=== PATIENT | male | born 1965 | race Hispanic/Latino ===

== ENCOUNTER → 2017-10-25 | Day surgery (SDC) | payer OTHER ==
[~2017-10-25] MED LIST: BELLADONNA/OPIUM 60 MG SUPP PR ONE; CEFTRIAXONE SOD 1 GM VIAL ONE; DEXAMETHASONE SOD PHOS INJ 4 MG/ML VIAL ONE; DITROPAN XL5 MG PO; FENTANYL CITRATE/PF 100MCG/2 ML INJ ONE; IOPAMIDOL 610MG/1ML 300 MG/ML VIAL IV ONE; LEVOFLOXACIN 500MG/D5W 100ML 100 ML IV ONE; LIDOCAINE HCL 2% LOCAL INJ 5 ML SDV VIAL INJ ONE; MIDAZOLAM HCL 2 MG/2 ML VIAL ONE; ONDANSETRON HCL INJ 2 MG/ML VIAL ONE; POTASSIUM CITRATE PO; PROPOFOL IV EMULSION 10 MG/ML 20 ML VIAL ONE; SEVOFLURANE INHAL SOLN 250 ML PEN BTL ONE; TYLENOL WITH C1 EACH PO; ZOFRAN ODT4 MG SL
--- NOTE | 2017-10-25 06:27 | Diagnostic Imaging Report ---
ABDOMEN-1VIEW (KUB) Clinical history: Preoperative kidney stone Technique: AP view abdomen Comparison: 08/11/2017 Findings: Abdomen: Nonobstructive bowel gas pattern. Kidneys/stones: Stable right renal stone burden with 2 mm calculus overlying the right lower pole, 3 mm calculus over the right interpolar region and 3 mm calculus over the right superior pole. Stable 3-4 mm calculi/calculus overlying the left lower pole. Pelvic phleboliths. Impression: Stable bilateral nephrolithiasis Signed by: Dr Camryn Noonan MD on 10/25/2017 6:23 AM
--- NOTE | 2017-11-30 04:49 | Operative Report ---
DATE OF PROCEDURE: October 25, 2017 PREOPERATIVE DIAGNOSES 1. Right nephrolithiasis. 2. Potential for renal colic. POSTOPERATIVE DIAGNOSES 1. Right nephrolithiasis. 2. Potential for renal colic. 3. Bulbar urethral stricture disease. OPERATIONS PERFORMED 1. Right-sided extracorporeal shockwave lithotripsy (separate staged procedure performed for the right nephrolithiasis). 2. Cystourethroscopy with calibration and dilation of bulbar urethral stricture (separate procedure performed for the diagnosis of stricture). 3. Cystourethroscopy with bilateral ureteral catheterization and retrograde ureteropyelography (separate procedure performed to evaluate to see whether the patient has renal colic as the etiology of the flank pains he has been describing). ANESTHESIA: General. COMPLICATIONS: None. CLINICAL SUMMARY: Carlos Alvarez is a 52-year-old man with recurrent urolithiasis. The patient had previous ESWL procedures, as well as previous ureteroscopies. He is brought to the operating room. He is aware of the risks of bleeding, infection, injury to adjacent structures, need for additional procedures, and elected to proceed. We plan to perform a contralateral ESWL in the near future. OPERATIVE PROCEDURE IN DETAIL: Informed consent was verified. Carlos Alvarez was properly identified and taken to the operating room, and placed on the lithotripsy table in the supine position. Anesthesia was uneventfully begun. The patient's right nephrolithiasis was localized with biplanar fluoroscopy. A total of 3000 shocks were delivered splitting them between the lower caliceal stone that was measuring 5 mm and the lower caliceal stone that was measuring 4 mm. Fragmentation was noted on fluoroscopy. The patient was then uneventfully and carefully repositioned in the dorsal lithotomy position with all pressure points well-padded. His genitalia were prepared and draped in the usual sterile fashion. A 22.5-Turkish cystoscope sheath with the visual obturator in place was atraumatically inserted into the patient's urethra. It was guided down the normal distal urethra to the bulbar region where there was a short, but fairly small caliber bulbar urethral stricture. We gently dilated across this stricture utilizing the visual obturator and entered the prostate bed. The prostate bed was significant for bilobar prostatic hypertrophy with an elevated median bar and visual obstruction of the bladder neck. Panendoscopy of the urinary bladder revealed no suspicious mucosal lesions. No tumors. No stones and no diverticula. Minimal trabeculations were noted. An 8-Turkish catheter was used to cannulate each ureter, and retrograde ureteropyelograms were performed. Interpretation of retrograde ureteropyelography. Contrast was instilled in a retrograde fashion bilaterally. There were filling defects of the right hand side, which corresponded to the area where we performed ESWL. The ureters were both free from obstruction and tumors. The right hand side did not exhibit any hydronephrosis or any reason for renal colic. The left side exhibited the stone as noted on preoperative radiographic studies. Unobstructed drainage was also noted on the left hand side. The patient's bladder was then drained. Cystoscope was withdrawn. A belladonna and opium suppository was placed revealing a 25 g prostate, but smooth, nonfluctuant without any nodules. Patient was uneventfully reversed from anesthesia, and taken to the recovery room in stable condition. There were no complications to the procedure. The patient tolerated the procedure well. Explicit postoperative instructions were given. Will return the patient to the operating room in several weeks to perform a left ESWL. Job#: [id number] MERRY
== END | disposition home or self-care (01) ==
LOC: OR 05:11
PROVIDERS: ATTEND Urology
DX: N20.0 Calculus of kidney (principal); N32.89 Other specified disorders of bladder; N40.1 Benign prostatic hyperplasia with lower urinary tract symptoms; N13.8 Other obstructive and reflux uropathy; N35.8 Other urethral stricture; I49.8 Other specified cardiac arrhythmias; G47.33 Obstructive sleep apnea (adult) (pediatric); Z01.810 Encounter for preprocedural cardiovascular examination; Z87.891 Personal history of nicotine dependence
CPT/HCPCS: 50590; 52281; 74000; 93005; C1758; J1100; J1956; J2001; J2250; J2405; Q9967; J0696

== ENCOUNTER → 2017-11-10 | Day surgery (SDC) | payer OTHER ==
[~2017-11-10] MED LIST changes: -BELLADONNA/OPIUM 60 MG SUPP PR ONE; -CEFTRIAXONE SOD 1 GM VIAL ONE; -IOPAMIDOL 610MG/1ML 300 MG/ML VIAL IV ONE; -MIDAZOLAM HCL 2 MG/2 ML VIAL ONE; +MIDAZOLAM HCL 5MG/ML 2ML VIAL ONE; +MORPHINE SULFATE 5 MG/ML VIAL ONE
--- NOTE | 2017-11-10 11:41 | Diagnostic Imaging Report ---
ABDOMEN-1VIEW (KUB) Clinical history: Preoperative ESWL Technique: AP view abdomen Comparison: 10/25/2017 Findings: Bowel gas gas and stool burden partially obscures the kidneys. There are two 2-3 mm stones projecting over the right upper pole. Other previously seen stones are not well visualized. Pelvic phleboliths again noted. Impression: Renal stones, as above. Signed by: Dr Camryn Noonan MD on 11/10/2017 6:57 AM
--- NOTE | 2018-01-09 05:43 | Operative Report ---
PREOPERATIVE DIAGNOSIS: Left nephrolithiasis. POSTOPERATIVE DIAGNOSIS: Left nephrolithiasis. OPERATIONS PERFORMED 1. Staged left-sided extracorporeal shock wave lithotripsy. 2. Supervision of fluoroscopy. No radiologist present. ANESTHESIA: General. COMPLICATIONS: None. CLINICAL SUMMARY: Carlos Alvarez is a 52-year-old man with recurrent bilateral urolithiasis who has undergone right ESWL and is brought for the left side. He is aware of the risks of bleeding, infection, injury to adjacent structures, need for additional procedures and elected to proceed. OPERATIVE PROCEDURE IN DETAIL: Informed consent was verified. Carlos Alvarez was properly identified, taken to the operating room, placed on the lithotripsy table in supine position. Anesthesia was uneventfully begun. The patient's left nephrolithiasis was localized with biplanar fluoroscopy. Total of 3000 shocks were delivered with visible fragmentation. The patient was then uneventfully reversed from anesthesia and taken to recovery room in stable condition. There were no complications to the procedure and he tolerated the procedure well. Explicit postoperative instructions were given. Will follow the patient up in the office. Job#: [id number] cc:RYANN MADRIGAL DO
== END | disposition home or self-care (01) ==
LOC: OR 05:45
PROVIDERS: ATTEND Urology
DX: N20.0 Calculus of kidney (principal); G47.33 Obstructive sleep apnea (adult) (pediatric)
CPT/HCPCS: 50590; 74000; J1100; J1956; J2001; J2250; J2270; J2405

== ENCOUNTER → 2018-07-27 | Outpatient (CLI) | payer BC ==
[~2018-07-27] MED LIST changes: -DEXAMETHASONE SOD PHOS INJ 4 MG/ML VIAL ONE; -FENTANYL CITRATE/PF 100MCG/2 ML INJ ONE; -LEVOFLOXACIN 500MG/D5W 100ML 100 ML IV ONE; -LIDOCAINE HCL 2% LOCAL INJ 5 ML SDV VIAL INJ ONE; -MIDAZOLAM HCL 5MG/ML 2ML VIAL ONE; -MORPHINE SULFATE 5 MG/ML VIAL ONE; -ONDANSETRON HCL INJ 2 MG/ML VIAL ONE; -PROPOFOL IV EMULSION 10 MG/ML 20 ML VIAL ONE; -SEVOFLURANE INHAL SOLN 250 ML PEN BTL ONE
--- NOTE | 2018-07-27 16:02 | Diagnostic Imaging Report ---
EXAM: Abdomen 2 Views INDICATION: \S\CALCULUS OF KIDNEY COMPARISON: KUB 11/10/2017 and 10/25/2017. CT abdomen and pelvis 10/20/2015 FINDINGS: Moderate amount of stool in the colon. No dilated loops of small bowel. 2 mm linear calcification overlying the upper pole of the right kidney is unchanged and consistent with nephrolithiasis. Faint 3 mm calcification overlying the inferior left kidney may represent a renal stone. No abnormal soft tissue masses. No degenerative changes in the lumbar spine and pelvis. IMPRESSION: 1. Unchanged right nephrolithiasis. 2. Possible left nephrolithiasis. Signed by: Dr. Britney Tiwari M.D. on 07/27/2018 3:58 PM
== END ==
LOC: RAD 14:37
PROVIDERS: ATTEND Urology
DX: N20.0 Calculus of kidney (principal)
CPT/HCPCS: 74018

== ENCOUNTER → 2019-01-22 | Outpatient (CLI) | payer BC ==
--- NOTE | 2019-01-22 13:11 | Diagnostic Imaging Report ---
EXAM: Abdomen 3 Views INDICATION: Renal calculus. COMPARISON: KUB 07/27/18. CT abdomen and pelvis 10/20/2015 FINDINGS: Unchanged 2 mm right upper pole renal calcification and 3 mm left lower pole renal calcification. Nonobstructive bowel gas pattern. No acute osseous abnormality. IMPRESSION: Unchanged appearance of bilateral renal stones. Signed by: Dr. Magdalena Rock MD on 01/22/2019 1:07 PM
== END ==
LOC: RAD 12:02
PROVIDERS: ATTEND Urology
DX: N20.0 Calculus of kidney (principal)
CPT/HCPCS: 74018

== ENCOUNTER → 2019-12-25 | Outpatient (CLI) | payer BC ==
[~2019-12-25] MED LIST changes: +IOPAMIDOL 370 MG/ML 200 ML INFUS..BTL INJ ONE; +SODIUM CHLORIDE 0.9% 50ML 50 ML ONE
--- NOTE | 2019-12-25 15:42 | Diagnostic Imaging Report ---
Exam: CT abdomen and pelvis Clinical history: Abdominal pain, hernia Technique: Helical images of the abdomen and pelvis were obtained after IV contrast demonstration DOSE REDUCTION: The exams was performed according to the departmental dose-optimization program which includes automated exposure control, adjustment of the mA and/or kV according to patient size and/or use of iterative reconstruction technique. Findings: The lung bases are clear. There is no evidence of pleural effusion. The cardiac size is within normal limits. Next The liver, spleen, pancreas, gallbladder, adrenal glands, and kidneys are unremarkable. The small and large bowels are normal in caliber without evidence of obstruction. Appendix is visualized and within normal limits. The bladder, prostate, and seminal vesicles are unremarkable. There is no evidence of lymphadenopathy or free fluid. The aorta and IVC are normal in caliber. A 3.2 cm fat-containing umbilical hernia is noted without evidence of angulation or incarceration. Impression: 1. Fat-containing umbilical hernia as described. Otherwise, unremarkable CT of abdomen and pelvis. Vanita at Dr. Patel's office was notified of findings on December 25, 2019 at 1530 hours. Signed by: Dr. Dewayne Gill MD on 12/25/2019 3:39 PM
== END ==
LOC: CT 14:30
PROVIDERS: ATTEND Family Medicine
DX: R10.9 Unspecified abdominal pain (principal); K42.9 Umbilical hernia without obstruction or gangrene; R11.0 Nausea
CPT/HCPCS: 74177; Q9967

== ENCOUNTER → 2020-01-10 | Day surgery (SDC) | payer BC ==
[2020-01-09 13:19] LABS: BASOPHILS # (AUTO) 0.1 (0.0-0.1); BASOPHILS % 1.1 % (0.0-1.0); EOSINOPHILS # (AUTO) 0.5 (0.0-0.4); EOSINOPHILS % 6.6 % (0.0-6.0); HEMATOCRIT 44.7 % (38.2-49.6); HEMOGLOBIN 14.5 g/dL (14.0-18.0); LYMPHOCYTES # (AUTO) 2.6 (1.0-3.2); LYMPHOCYTES % 32.7 % (18.0-39.1); MEAN CORPUSCULAR HEMOGLOBIN 29.8 pg (28-32); MEAN CORPUSCULAR HGB CONC 32.4 g/dL (31-35); MONOCYTES # (AUTO) 0.8 (0.2-0.8); MONOCYTES % 9.8 % (4.4-11.3); NEUTROPHILS % 49.4 % (38.7-80.0); PLATELET COUNT 257 x10e3/uL (140-360); RED BLOOD COUNT 4.86 x10e6/uL (4.3-5.7); RED CELL DISTRIBUTION WIDTH 13.3 % (11.7-14.4)
[2020-01-09 13:35] LABS: ANION GAP 10.1 mmol/L (8-16); CALCIUM 9.1 mg/dL (8.4-10.2); CREATININE, SERUM 1.31 mg/dL (0.72-1.25); POTASSIUM 4.1 mmol/L (3.5-5.1)
[~2020-01-10] MED LIST changes: +ACETAMINOPHEN 1000 MG/100 ML IV ONE; +BUPIVACAINE 0.25% 30ML SDV INJ ONE; +DEXAMETHASONE SOD PHOS INJ 4 MG/ML VIAL ONE; +FENTANYL CITRATE/PF 100MCG/2 ML INJ ONE; +GLYCOPYRROLATE INJ 0.2 MG/ML VIAL ONE; +HYDROCODONE/APAP 7.5MG-325MG 1 EA TAB ONE; +HYDROMORPHONE 1MG/1ML INJ ONE; -IOPAMIDOL 370 MG/ML 200 ML INFUS..BTL INJ ONE; +LIDOCAINE 1% W/EPINEPHRINE 20 ML VIAL ONE; +LIDOCAINE HCL 2% LOCAL INJ 5 ML SDV VIAL INJ ONE; +MIDAZOLAM HCL 2 MG/2 ML VIAL ONE; +NEOSTIGMINE 1 MG/ML 10ML VIAL ONE; +ONDANSETRON HCL INJ 2MG/ML 2ML 2 MG/ML VIAL ONE; +PROPOFOL IV EMULSION 10 MG/ML 20 ML VIAL ONE; +ROCURONIUM BROMIDE 10 MG/ML 5ML VIAL ONE; +SEVOFLURANE INHAL SOLN 250 ML PEN BTL ONE; -SODIUM CHLORIDE 0.9% 50ML 50 ML ONE
--- OUTSIDE RECORDS SUMMARY | 2020-01-10 07:32 | XMS REPORT ---
Author Author [facility] Address Unknown Phone Unavailable Care Team Providers Care Dehydrating Press Operator Name Role Phone RYANN PATEL Unavailable Unavailable HAMPEL, PARMINDER Unavailable Unavailable Problems This patient has no known problems. Allergies, Adverse Reactions, Alerts This patient has no known allergies or adverse reactions. Medications This patient has no known medications. Results Test Description Test Time Test Comments Text Results Atomic Results Result Comments CT ABDOMEN/PELVIS W 2019-12-25 15:35:00 [facility] [address] [address] Patient Name: NAILA SCHUSTER MR #: [id number] : 1965 Age/Sex: 54/M Req #: [id number] Adm Physician: Ordered by: RYANN PATEL DO Report #: [id number] Location: CT Room/Bed: Procedure: [id number] CT/CT ABDOMEN/PELVIS W Exam Date: 12/25/19 Exam Time: 1510 REPORT STATUS: Signed Exam: CT abdomen and pelvis Clinical history: Abdominal pain, hernia Technique: Helical images of the abdomen and pelvis were obtained after IV contrast demonstration DOSE REDUCTION: The exams was performed according to the departmental dose-optimization program which includes automated exposure control, adjustment of the mA and/or kV according to patient size and/or use of iterative reconstruction technique. Findings: The lung bases are clear. There is no evidence of pleural effusion. The cardiac size is within normal limits. Next The liver, spleen, pancreas, gallbladder, adrenal glands, and kidneys are unremarkable. The small and large bowels are normal in caliber without evidence of obstruction. Appendix is visualized and within normal limits. The bladder, prostate, and seminal vesicles are unremarkable. There is no evidence of lymphadenopathy or free fluid. The aorta and IVC are normal in caliber. A 3.2 cm fat-containing umbilical hernia is noted without evidence of angulation or incarceration. Impression: 1. Fat-containing umbilical hernia as described. Otherwise, unremarkable CT of abdomen and pelvis. Vanita at Dr. Patel's office was notified of findings on December 25, 2019 at 1530 hours. Signed by: Dr. Dewayne Gill MD on 12/25/2019 3:39 PM Dictated By: JACKSON GILL MD 38 Transcribed By: JAYMIE on 12/25/191538 COPY TO: RYANN PATEL DO ABDOMEN-1VIEW (KUB) 2019-08-30 10:28:00 [place] [address] Patient Name: NAILA SCHUSTER MR #: [id number] : 1965 Age/Sex: 54/M Req #: [id number] Adm Physician: Ordered by: PARMINDER LORENZO MD Report #: [id number] Location: Room/Bed: Procedure: [id number] DX/ABDOMEN-1VIEW (KUB) Exam Date: 08/30/19 Exam Time: 0940 REPORT STATUS: Signed Exam: KUB - 2 views Indication: Renal calculi Comparison: Multiple prior KUBs, most recently 01/22/2019, renal ultrasound of the same day. Findings: 4 mm right upper pole renal calculus and 4 mm left lower pole renal calculus. These were not well seen on the renal ultrasound of the same day but were present on prior KUB. No additional radiographically apparent renal calculi. Nonobstructive bowel gas pattern. No free air. The osseous structures appear unremarkable. Impression: 4 mm right upper pole and 4 mm left lower pole renal calculi. Signed by: Phan Ernst MD on 08/30/2019 10:31 AM Dictated By: PHAN ERNST MD 1031 Transcribed By: JAYMIE on 08/30/19 1031 COPY TO: PARMINDER LORENZO MD RENAL RETROPERITONEAL COMP 2019-08-30 10:16:00 [place] [address] Patient Name: NAILA SCHUSTER MR #: [id number] : 1965 Age/Sex: 54/M Req #: [id number] Adm Physician: Ordered by: PARMINDER LORENZO MD Report #: [id number] Location: Room/Bed: Procedure: [id number] US/US RENAL RETROPERITONEAL COMP Exam Date: 08/30/19 Exam Time: 930 REPORT STATUS: Signed EXAM: Renal Ultrasound INDICATION: 201 18024 0931 CALCULUS OF KIDNEY COMPARISON: None TECHNIQUE: Transverse and longitudinal images of the kidneys and bladder were obtained. FINDINGS: Right Kidney: Length: 12.9 cm Appearance: Normal echogenicity. Collecting system: No hydronephrosis Stones: None Cyst/Mass: None Left Kidney: Length: 12.4 cm Appearance: Normal echogenicity. Collecting system: No hydronephrosis Stones: None Cyst/Mass: None Bladder: No mass or calculi. Bilateral ureteral jets seen. Prevoid volume estimate of 135cc. IMPRESSION: No renal calculi or hydronephrosis. Signed by: Phan Ernst MD on 08/30/2019 10:18 AM Dictated By: PHAN ERNST MD 1018 Transcribed By: JAYMIE on 08/30/19 1018 COPY TO: PARMINDER LORENZO MD ABDOMEN-1VIEW (KUB) 2019-01-22 12:59:00 [place] [address] Patient Name: NAILA SCHUSTER MR #: [id number] : 1965 Age/Sex: 53/M Req #: [id number] Adm Physician: Ordered by: PARMINDER LORENZO MD Report #: [id number] Location: [facility] Room/Bed: Procedure: [id number] DX/ABDOMEN-1VIEW (KUB) Exam Date: 01/22/19 Exam Time: 1220 REPORT STATUS: Signed EXAM: Abdomen 3 Views INDICATION: Renal calculus. COMPARISON: KUB 07/27/18. CT abdomen and pelvis 10/20/2015 FINDINGS: Unchanged 2 mm right upper pole renal calcification and 3 mm left lower pole renal calcification. Nonobstructive bowel gas pattern. No acute osseous abnormality. IMPRESSION: Unchanged appearance of bilateral renal stones. Signed by: Dr. Judy Pelayo MD on 01/22/2019 1:07 PM Dictated By: JUDY PELAYO MD 1307 Transcribed By: JAYMIE on 01/22/19 1307 COPY TO: PARMINDER LORENZO MD ABDOMEN-1VIEW (KUB) 2018-07-27 15:56:00 [place] [address] Patient Name: NAILA SCHUSTER MR #: [id number] : 1965 Age/Sex: 52/M Req #: [id number] Adm Physician: Ordered by: PARMINDER LORENZO MD Report #: [id number] Location: [facility] Room/Bed: Procedure: [id number] DX/ABDOMEN-1VIEW (KUB) Exam Date: Exam Time: REPORT STATUS: Signed EXAM: Abdomen 2 Views INDICATION: COMPARISON: KUB 11/10/2017 and 10/25/2017. CT abdomen and pelvis 10/20/2015 FINDINGS: Moderate amount of stool in the colon. No dilated loops of small bowel. 2 mm linear calcification overlying the upper pole of the right kidney is unchanged and consistent with nephrolithiasis. Faint 3 mm calcification overlying the inferior left kidney may represent a renal stone. No abnormal soft tissue masses. No degenerative changes in the lumbar spine and pelvis. IMPRESSION: 1. Unchanged right nephrolithiasis. 2. Possible left nephrolithiasis. Signed by: Dr. Bean Berry M.D. on 07/27/2018 3:58 PM Dictated By: BEAN BERRY MD 3001 Transcribed By: JAYMIE on 07/27/18 6702 COPY TO: PARMINDER LORENZO MD ABDOMEN-1VIEW ([facility]) [place] [address] Patient Name: NAILA SCHUSTER MR #: [id number] : 1965 Age/Sex: 52/M Req #: [id number] Adm Physician: Ordered by: PARMINDER LORENZO MD Report #: [id number] Location: OR Room/Bed: Procedure: [id number] DX/ABDOMEN-1VIEW (KUB) Exam Date: 11/10/17 Exam Time: 609 REPORT STATUS: Signed ABDOMEN-1VIEW (KUB) Clinical history: Preoperative ESWL Technique: AP view abdomen Comparison: 10/25/2017 Findings: Bowel gas gas and stool burden partially obscures the kidneys. There are two 2-3 mm stones projecting over the right upper pole. Other previously seen stones are not well visualized. Pelvic phleboliths again noted. Impression: Renal stones, as above. Signed by: Dr Joey Noonan MD on 11/10/2017 6:57 AM Dictated By: JOEY NOONAN MD 6 Transcribed By: JAYMIE on 11/10/17656 COPY TO: PARMINDER LORENZO MD ABDOMEN-1VIEW (KUB) [place] [address] Patient Name: NAILA SCHUSTER MR #: [id number] : 1965 Age/Sex: 52/M Req #: [id number] Adm Physician: Ordered by: PARMINDER LORENZO MD Report #: [id number] Location: OR Room/Bed: Procedure: [id number] DX/ABDOMEN-1VIEW (KUB) Exam Date: 10/25/17 Exam Time: 0546 REPORT STATUS: Signed ABDOMEN-1VIEW (KUB) Clinical history: Preoperative kidney stone Technique: AP view abdomen Comparison: 08/11/2017 Findings: Abdomen: Nonobstructive bowel gas pattern. Kidneys/stones: Stable right renal stone burden with 2 mm calculus overlying the right lower pole, 3 mm calculus over the right interpolar region and 3 mm calculus over the right superior pole. Stable 3-4 mm calculi/calculus overlying the left lower pole. Pelvic phleboliths. Impression: Stable bilateral nephrolithiasis Signed by: Dr Joey Noonan MD on 10/25/2017 6:23 AM Dictated By: JOEY NOONAN MD 2 Transcribed By: JAYMIE on 10/25/17622 COPY TO: PARMINDER LORENZO MD ABDOMEN-1VIEW (KUB) [place] [address] Patient Name: NAILA SCHUSTER MR #: [id number] : 1965 Age/Sex: 52/M Req #: [id number] Adm Physician: Ordered by: PARMINDER LORENZO MD Report #: [id number] Location: [facility] Room/Bed: Procedure: [id number] DX/ABDOMEN-1VIEW (KUB) Exam Date: 08/11/17 Exam Time: 1650 REPORT STATUS: Signed PROCEDURE: X-RAY ABDOMEN - KUB COMPARISON: None. INDICATIONS: CALCULUS OF KIDNEY FINDINGS: There are no dilated loops of bowel to suggest obstruction. There are no masses. There is no evidence of free air. No acute osseous abnormalities are present. 0.2 cm and 0.2 cm stones in the lower pole of the right kidney. 0.3 cm stone in the lower pole of the left kidney. CONCLUSION: Stable stones in bilateral kidneys. Dictated by: Rere Choudhary M.D. on 08/11/2017 at 17:19 Electronically approved by: Rere Choudhary M.D. on 08/11/2017 at 17:19 Dictated By: RERE CHOUDHARY MD 18 Transcribed By: AUBREE on 08/11/171718 COPY TO: PARMINDER LORENZO MD
[2020-01-10 13:20] VITALS: BP 115/81
--- NOTE | 2020-01-10 13:49 | Operative Report ---
DATE OF PROCEDURE: 01/10/2020 SURGEON: Richard De La Cruz MD PREOPERATIVE DIAGNOSIS: Umbilical hernia. POSTOPERATIVE DIAGNOSIS: Umbilical hernia. OPERATION PERFORMED: Repair of umbilical hernia with Ventralex patch. MULTI CRAFT MAINTENANCE TECHNICIAN: JAZLYN Gibbs. ANESTHESIA: General. COMPLICATIONS: None. ESTIMATED BLOOD LOSS: Minimal. DESCRIPTION OF PROCEDURE: With the patient lying in bed in the supine position under good general anesthesia, the abdomen was prepped with Betadine solution and draped in the usual manner. A semilunar subumbilical incision was made and carried down to the fascia. The hernia sac was then encircled with normal fascia all the way around. The umbilicus was then detached from the hernia sac. The contents were then reduced back to the intra-abdominal cavity and the excess of the hernia sac was resected. There was good fascia all the way around. A medium-sized Ventralex patch was then placed intra-abdominally and deployed without any difficulty. After this was done, the defect was then closed transversely using interrupted sutures of 0 Ethibond anchoring the mesh with the closure. This gave us a satisfactory repair without any tension. The whole area was then thoroughly irrigated. Perfect hemostasis was ascertained. All layers were infiltrated on the way out with solution of 0.25% Marcaine. The umbilicus was then tacked back down to the midline fascia with 3-0 Vicryl. The subcutaneous tissue was approximated with 3-0 Vicryl and the skin was closed with interrupted vertical mattress sutures of 3-0 silk. A dressing was applied. The sponge, lap, and needle count was correct. The patient tolerated the procedure well and returned to the recovery room in stable condition. MD CATHY Corral/MODL /[id number]
== END | disposition home or self-care (01) ==
LOC: OR 07:30
PROVIDERS: ATTEND Surgery
DX: K42.9 Umbilical hernia without obstruction or gangrene (principal); G47.33 Obstructive sleep apnea (adult) (pediatric); Z88.0 Allergy status to penicillin; Z01.810 Encounter for preprocedural cardiovascular examination; Z01.812 Encounter for preprocedural laboratory examination
CPT/HCPCS: 36415; 49585; 80048; 85025; 93005; C1781; J0131; J1100; J1170; J2001; J2250; J2405; J2704; J2710; J3010

== ENCOUNTER → 2020-09-22 | Day surgery (SDC) | payer BC ==
[~2020-09-22] MED LIST changes: -ACETAMINOPHEN 1000 MG/100 ML IV ONE; +ACETAMINOPHEN 325 MG/10 ML UDC ONE; -BUPIVACAINE 0.25% 30ML SDV INJ ONE; -DEXAMETHASONE SOD PHOS INJ 4 MG/ML VIAL ONE; -GLYCOPYRROLATE INJ 0.2 MG/ML VIAL ONE; -HYDROCODONE/APAP 7.5MG-325MG 1 EA TAB ONE; -HYDROMORPHONE 1MG/1ML INJ ONE; +HYOSCYAMINE 0.125 MG TAB ONE; -LIDOCAINE 1% W/EPINEPHRINE 20 ML VIAL ONE; +MAGNESIUM OXID400 MG PO; +MULTI-VITAMIN1 EACH PO; -NEOSTIGMINE 1 MG/ML 10ML VIAL ONE; -ONDANSETRON HCL INJ 2MG/ML 2ML 2 MG/ML VIAL ONE; -ROCURONIUM BROMIDE 10 MG/ML 5ML VIAL ONE; -SEVOFLURANE INHAL SOLN 250 ML PEN BTL ONE; +VIT C PO; +ZINC50 MG PO
[2020-09-22 13:35] VITALS: BP 114/65
== END | disposition home or self-care (01) ==
LOC: OR 08:57
PROVIDERS: ATTEND Internal Medicine Gastroenterology
DX: Z12.11 Encounter for screening for malignant neoplasm of colon (principal); D12.2 Benign neoplasm of ascending colon; K62.1 Rectal polyp; K64.8 Other hemorrhoids; Z88.0 Allergy status to penicillin; Z01.810 Encounter for preprocedural cardiovascular examination; Z01.812 Encounter for preprocedural laboratory examination; Z20.828 Contact with and (suspected) exposure to other viral communicable diseases
CPT/HCPCS: 45380; 93005; J2001; J2250; J2704; J3010; U0002; 45378

== ENCOUNTER → 2021-03-15 | Outpatient (CLI) | payer BC ==
[~2021-03-15] MED LIST changes: -ACETAMINOPHEN 325 MG/10 ML UDC ONE; -FENTANYL CITRATE/PF 100MCG/2 ML INJ ONE; -HYOSCYAMINE 0.125 MG TAB ONE; -LIDOCAINE HCL 2% LOCAL INJ 5 ML SDV VIAL INJ ONE; -MIDAZOLAM HCL 2 MG/2 ML VIAL ONE; -PROPOFOL IV EMULSION 10 MG/ML 20 ML VIAL ONE
== END ==
LOC: RAD 16:31
PROVIDERS: ATTEND Urology
DX: N20.0 Calculus of kidney (principal)
CPT/HCPCS: 74018

== ENCOUNTER 2021-04-15 09:26 | Observation (INO) | payer BC ==
[2021-04-13 09:01] LABS: BASOPHILS # (AUTO) 0.1 (0.0-0.1); BASOPHILS % 1.3 % (0.0-1.0); EOSINOPHILS # (AUTO) 0.7 (0.0-0.4); EOSINOPHILS % 8.8 % (0.0-6.0); HEMATOCRIT 46.7 % (38.2-49.6); HEMOGLOBIN 15.3 g/dL (14.0-18.0); LYMPHOCYTES % 24.8 % (18.0-39.1); MEAN CORPUSCULAR HEMOGLOBIN 29.7 pg (28-32); MEAN CORPUSCULAR HGB CONC 32.8 g/dL (31-35); MEAN CORPUSCULAR VOLUME 90.5 fL (81-99); MONOCYTES # (AUTO) 0.8 (0.2-0.8); MONOCYTES % 9.2 % (4.4-11.3); NEUTROPHILS # (AUTO) 4.5 (2.1-6.9); NEUTROPHILS % 55.5 % (38.7-80.0); PLATELET COUNT 238 x10e3/uL (140-360); RED BLOOD COUNT 5.16 x10e6/uL (4.3-5.7); RED CELL DISTRIBUTION WIDTH 13.6 % (11.7-14.4)
[2021-04-13 09:23] LABS: ANION GAP 13.2 mmol/L (8-16); CALCIUM 8.7 mg/dL (8.4-10.2); CREATININE, SERUM 1.41 mg/dL (0.72-1.25); POTASSIUM 4.2 mmol/L (3.5-5.1)
[~2021-04-15] VITALS: Ht 180.3 cm; Wt 92.3 kg
[2021-04-15] MEDS ORDERED: BUPIVACAINE 0.5%/EPI 30 ML SDV INJ ONE (10:35)
[2021-04-15] MEDS ORDERED: LIDOCAINE HCL 1% LOCAL INJ 20 ML VIAL ONE (10:35)
[2021-04-15] MEDS ORDERED: LIDOCAINE HCL 2% 30 ML TUBE ONE (10:35)
[2021-04-15] MEDS ORDERED: BUPIVACAINE LIPOSOME/PF 266 MG/20 ML IJ ONE (10:35)
[2021-04-15] MEDS ORDERED: ACETAMINOPHEN 1000 MG/100 ML 100 ML IV ONE (11:17)
[2021-04-15] MEDS ORDERED: ACETAMINOPHEN 1000 MG/100 ML IV PRN (12:30)
[2021-04-15] MEDS ORDERED: ONDANSETRON HCL INJ 2MG/ML 2ML 2 MG/ML VIAL IV PRN (12:30)
[2021-04-15] MEDS ORDERED: FENTANYL CITRATE/PF 100MCG/2 ML INJ ONE (12:53)
[2021-04-15 14:00] VITALS: BP 112/66
[2021-04-15 14:05] VITALS: BP 120/74
[2021-04-15] MEDS: HYDROCODONE/APAP 7.5MG-325MG 1 EA TAB PO PRN ×2 (14:38→19:32)
[2021-04-15] MEDS: SODIUM CHLORIDE 0.9% 1000ML 1,000 ML IV SCH ×2 (14:38→23:55)
[2021-04-15] MEDS: LEVOFLOXACIN 500 MG TAB PO SCH (14:38)
[2021-04-15] MEDS: HYDROMORPHONE 1MG/1ML INJ IV PRN ×2 (17:04→21:39)
[2021-04-15] MEDS ORDERED: LIDOCAINE HCL 2% JELLY 5 ML TUBE ONE (17:24)
[2021-04-15] MEDS ORDERED: DEXAMETHASONE SOD PHOS INJ 4 MG/ML VIAL ONE (17:24)
[2021-04-15] MEDS ORDERED: LIDOCAINE HCL 2% LOCAL INJ 5 ML SDV VIAL INJ ONE (17:24)
[2021-04-15] MEDS ORDERED: SEVOFLURANE INHAL SOLN 250 ML PEN BTL ONE (17:24)
[2021-04-15] MEDS ORDERED: EPHEDRINE SULFATE INJ 50 MG/ML VIAL ONE (17:24)
[2021-04-15] MEDS ORDERED: ONDANSETRON HCL INJ 2MG/ML 2ML 2 MG/ML VIAL ONE (17:24)
[2021-04-15] MEDS ORDERED: POVIDONE IODINE 0.05% 0.05 % ML PO ONE (17:24)
[2021-04-15] MEDS ORDERED: PROPOFOL IV EMULSION 10 MG/ML 20 ML VIAL ONE (17:24)
[2021-04-15 18:39] LABS: BASOPHILS # (AUTO) 0.1 (0.0-0.1); BASOPHILS % 0.4 % (0.0-1.0); EOSINOPHILS % 0.1 % (0.0-6.0); HEMATOCRIT 46.3 % (38.2-49.6); HEMOGLOBIN 15.2 g/dL (14.0-18.0); LYMPHOCYTES # (AUTO) 0.9 (1.0-3.2); LYMPHOCYTES % 7.2 % (18.0-39.1); MEAN CORPUSCULAR HEMOGLOBIN 29.9 pg (28-32); MEAN CORPUSCULAR HGB CONC 32.8 g/dL (31-35); MEAN CORPUSCULAR VOLUME 91.1 fL (81-99); MONOCYTES # (AUTO) 0.3 (0.2-0.8); MONOCYTES % 2.5 % (4.4-11.3); NEUTROPHILS # (AUTO) 11.1 (2.1-6.9); NEUTROPHILS % 89.4 % (38.7-80.0); PLATELET COUNT 244 x10e3/uL (140-360); RED BLOOD COUNT 5.08 x10e6/uL (4.3-5.7); RED CELL DISTRIBUTION WIDTH 13.5 % (11.7-14.4)
[2021-04-15 19:11] LABS: ANION GAP 12.7 mmol/L (8-16); CALCIUM 8.2 mg/dL (8.4-10.2); CREATININE, SERUM 1.44 mg/dL (0.72-1.25); POTASSIUM 4.7 mmol/L (3.5-5.1)
[2021-04-15 20:00] VITALS: BP 119/65
[2021-04-15 21:25] VITALS: BP 119/65
[2021-04-16] MEDS: HYDROCODONE/APAP 7.5MG-325MG 1 EA TAB PO PRN ×3 (00:05→13:27)
[2021-04-16] MEDS: SODIUM CHLORIDE 0.9% 1000ML 1,000 ML IV SCH ×2 (00:30→09:26)
[2021-04-16 00:38] VITALS: BP 99/51
[2021-04-16] MEDS: HYDROMORPHONE 1MG/1ML INJ IV PRN ×2 (02:30→05:28)
[2021-04-16 04:00] VITALS: BP 114/49
[2021-04-16 05:04] LABS: BASOPHILS # (AUTO) 0.1 (0.0-0.1); BASOPHILS % 0.4 % (0.0-1.0); EOSINOPHILS % 0.1 % (0.0-6.0); LYMPHOCYTES # (AUTO) 2.3 (1.0-3.2); LYMPHOCYTES % 12.4 % (18.0-39.1); MEAN CORPUSCULAR HEMOGLOBIN 29.7 pg (28-32); MEAN CORPUSCULAR HGB CONC 32.6 g/dL (31-35); MEAN CORPUSCULAR VOLUME 91.3 fL (81-99); MONOCYTES # (AUTO) 1.4 (0.2-0.8); MONOCYTES % 7.2 % (4.4-11.3); NEUTROPHILS # (AUTO) 14.8 (2.1-6.9); NEUTROPHILS % 79.1 % (38.7-80.0); PLATELET COUNT 240 x10e3/uL (140-360); RED BLOOD COUNT 4.71 x10e6/uL (4.3-5.7); RED CELL DISTRIBUTION WIDTH 13.7 % (11.7-14.4)
[2021-04-16 05:28] LABS: ANION GAP 13.2 mmol/L (8-16); CALCIUM 7.8 mg/dL (8.4-10.2); CREATININE, SERUM 1.47 mg/dL (0.72-1.25); POTASSIUM 4.2 mmol/L (3.5-5.1)
[2021-04-16 08:20] VITALS: BP 105/51
[2021-04-16] MEDS: KETOROLAC TROMETHAMINE 30 MG/ML VIAL IV PRN ×2 (08:33→16:00)
[2021-04-16 08:48] VITALS: BP 105/57
[2021-04-16 13:51] VITALS: BP 102/52
[2021-04-16] MEDS: LEVOFLOXACIN 500 MG TAB PO SCH (15:30)
[2021-04-16 16:54] VITALS: BP 105/51
== END 2021-04-16 18:26 | disposition home or self-care (01) ==
LOC: OR 09:26 → PACU V 12:22 → IMCU 14:00 → MED/SURG 18:15
PROVIDERS: ADMIT Surgery; ATTEND Surgery
DX: K64.8 Other hemorrhoids (principal); G47.33 Obstructive sleep apnea (adult) (pediatric); Z88.0 Allergy status to penicillin; Z01.810 Encounter for preprocedural cardiovascular examination; Z01.812 Encounter for preprocedural laboratory examination; Z20.822 Contact with and (suspected) exposure to COVID-19; Z87.442 Personal history of urinary calculi
CPT/HCPCS: 36415 ×3; 46260; 80048 ×3; 85025 ×3; 88304; 93005; 96360; 96361; G0378 ×2; J0131; J1100; J1170 ×2; J1885; J2001 ×3; J2405; J2704; J3010; J7030 ×2; U0002

== ENCOUNTER → 2021-07-23 | Outpatient (CLI) | payer BC | LOC: US 08:44 | PROVIDERS: ATTEND Family Medicine | DX: S39.013A Strain of muscle, fascia and tendon of pelvis, initial encounter (principal) | CPT/HCPCS: 76856 ==

== ENCOUNTER → 2021-10-11 | Day surgery (SDC) | payer BC ==
[2021-10-06 08:01] LABS: BASOPHILS # (AUTO) 0.1 (0.0-0.1); BASOPHILS % 1.3 % (0.0-1.0); EOSINOPHILS # (AUTO) 0.5 (0.0-0.4); HEMATOCRIT 48.9 % (38.2-49.6); HEMOGLOBIN 15.9 g/dL (14.0-18.0); LYMPHOCYTES # (AUTO) 2.6 (1.0-3.2); LYMPHOCYTES % 30.8 % (18.0-39.1); MEAN CORPUSCULAR HEMOGLOBIN 29.6 pg (28-32); MEAN CORPUSCULAR HGB CONC 32.5 g/dL (31-35); MEAN CORPUSCULAR VOLUME 90.9 fL (81-99); MONOCYTES % 11.3 % (4.4-11.3); NEUTROPHILS # (AUTO) 4.3 (2.1-6.9); NEUTROPHILS % 50.4 % (38.7-80.0); PLATELET COUNT 225 x10e3/uL (140-360); RED BLOOD COUNT 5.38 x10e6/uL (4.3-5.7); RED CELL DISTRIBUTION WIDTH 14.1 % (11.7-14.4)
[2021-10-06 08:37] LABS: ANION GAP 10.9 mmol/L (8-16); CALCIUM 8.4 mg/dL (8.4-10.2); CREATININE, SERUM 1.38 mg/dL (0.72-1.25); POTASSIUM 3.9 mmol/L (3.5-5.1)
[~2021-10-11] MED LIST changes: +BUPIVACAINE 0.25% 30ML SDV ONE; +DEXAMETHASONE SOD PHOS INJ 4 MG/ML SDV ONE; +FENTANYL CITRATE/PF 100MCG/2 ML INJ ONE; +HYDROCODONE/APAP 7.5MG-325MG 1 EA TAB ONE; +LIDOCAINE 1% W/EPINEPHRINE 20 ML VIAL ONE; +LIDOCAINE HCL 2% LOCAL INJ 5 ML SDV VIAL INJ ONE; +MIDAZOLAM HCL 2 MG/2 ML VIAL ONE; +ONDANSETRON HCL INJ 2MG/ML 2ML 2 MG/ML VIAL ONE; +POVIDONE IODINE 0.05% 0.05 % ML PO ONE; +PROPOFOL IV EMULSION 10 MG/ML 20 ML VIAL ONE; +SEVOFLURANE INHAL SOLN 250 ML PEN BTL ONE
[2021-10-11 12:40] VITALS: BP 113/72
== END | disposition home or self-care (01) ==
LOC: OR 06:30
PROVIDERS: ATTEND Surgery
DX: K40.90 Unilateral inguinal hernia, without obstruction or gangrene, not specified as recurrent (principal); D17.6 Benign lipomatous neoplasm of spermatic cord; G47.33 Obstructive sleep apnea (adult) (pediatric); E66.9 Obesity, unspecified; N20.0 Calculus of kidney; Z88.0 Allergy status to penicillin; Z01.810 Encounter for preprocedural cardiovascular examination; Z01.812 Encounter for preprocedural laboratory examination; Z20.822 Contact with and (suspected) exposure to COVID-19
CPT/HCPCS: 36415; 49505; 80048; 85025; 93005; C1781; J1100; J2001; J2250; J2405; J2704; J3010; U0002

== ENCOUNTER → 2022-02-17 | Outpatient (CLI) | payer BC ==
[~2022-02-17] MED LIST changes: -BUPIVACAINE 0.25% 30ML SDV ONE; -DEXAMETHASONE SOD PHOS INJ 4 MG/ML SDV ONE; -FENTANYL CITRATE/PF 100MCG/2 ML INJ ONE; -HYDROCODONE/APAP 7.5MG-325MG 1 EA TAB ONE; -LIDOCAINE 1% W/EPINEPHRINE 20 ML VIAL ONE; -LIDOCAINE HCL 2% LOCAL INJ 5 ML SDV VIAL INJ ONE; -MIDAZOLAM HCL 2 MG/2 ML VIAL ONE; -ONDANSETRON HCL INJ 2MG/ML 2ML 2 MG/ML VIAL ONE; -POVIDONE IODINE 0.05% 0.05 % ML PO ONE; -PROPOFOL IV EMULSION 10 MG/ML 20 ML VIAL ONE; -SEVOFLURANE INHAL SOLN 250 ML PEN BTL ONE
== END ==
LOC: RAD 16:48
PROVIDERS: ATTEND Urology
DX: N20.0 Calculus of kidney (principal)
CPT/HCPCS: 74018

== ENCOUNTER → 2022-04-08 | Day surgery (SDC) | payer BC ==
[2022-04-06 16:00] LABS: BASOPHILS # (AUTO) 0.1 (0.0-0.1); BASOPHILS % 1.2 % (0.0-1.0); EOSINOPHILS # (AUTO) 0.3 (0.0-0.4); EOSINOPHILS % 3.5 % (0.0-6.0); HEMOGLOBIN 17.4 g/dL (14.0-18.0); LYMPHOCYTES # (AUTO) 2.7 (1.0-3.2); LYMPHOCYTES % 29.8 % (18.0-39.1); MEAN CORPUSCULAR HEMOGLOBIN 30.8 pg (28-32); MEAN CORPUSCULAR HGB CONC 33.5 g/dL (31-35); MONOCYTES % 10.4 % (4.4-11.3); NEUTROPHILS # (AUTO) 5.1 (2.1-6.9); NEUTROPHILS % 54.8 % (38.7-80.0); PLATELET COUNT 256 x10e3/uL (140-360); RED BLOOD COUNT 5.65 x10e6/uL (4.3-5.7); RED CELL DISTRIBUTION WIDTH 13.5 % (11.7-14.4)
[2022-04-06 16:14] LABS: ANION GAP 13.9 mmol/L (8-16); CALCIUM 8.9 mg/dL (8.4-10.2); CREATININE, SERUM 1.7 mg/dL (0.72-1.25); POTASSIUM 3.9 mmol/L (3.5-5.1)
[~2022-04-08] MED LIST changes: +ACETAMINOPHEN 1000 MG/100 ML 100 ML IV ONE; +ACETAMINOPHEN/CODEINE 300MG - 30MG TAB ONE; +ATROPINE SULFATE 1 MG/ML VIAL ONE; +B&O 60MG R/S 60 MG SUPP PR ONE; +DEXAMETHASONE SOD PHOS INJ 4 MG/ML SDV ONE; +EPHEDRINE SULFATE INJ 50 MG/ML VIAL ONE; +FENTANYL CITRATE/PF 100MCG/2 ML INJ ONE; +GENTAMICIN 80MG/NS 100 ML 200 ML IV ONE; +GLYCOPYRROLATE INJ 0.2 MG/ML VIAL ONE; +HYDROMORPHONE 1MG/1ML INJ ONE; +IOPAMIDOL 610MG/1ML 300 MG/ML VIAL IV ONE; +LIDOCAINE HCL 2% LOCAL INJ 5 ML SDV VIAL INJ ONE; +MEPERIDINE HCL INJ 25 MG/ML VIAL ONE; +MIDAZOLAM HCL 2 MG/2 ML VIAL ONE; +ONDANSETRON HCL INJ 2MG/ML 2ML 2 MG/ML VIAL ONE; +POVIDONE IODINE 0.05% 0.05 % ML PO ONE; +PROPOFOL IV EMULSION 10 MG/ML 20 ML VIAL ONE; +SEVOFLURANE INHAL SOLN 250 ML PEN BTL ONE
[2022-04-08 10:56] VITALS: BP 131/80
== END | disposition home or self-care (01) ==
LOC: OR 06:45
PROVIDERS: ATTEND Urology
DX: N20.0 Calculus of kidney (principal); N35.912 Unspecified bulbous urethral stricture, male; N40.0 Benign prostatic hyperplasia without lower urinary tract symptoms; N13.8 Other obstructive and reflux uropathy; N32.89 Other specified disorders of bladder; G47.33 Obstructive sleep apnea (adult) (pediatric); E66.9 Obesity, unspecified; Z88.0 Allergy status to penicillin; Z01.810 Encounter for preprocedural cardiovascular examination; Z01.812 Encounter for preprocedural laboratory examination; Z01.818 Encounter for other preprocedural examination; Z20.822 Contact with and (suspected) exposure to COVID-19; Z68.33 Body mass index [BMI] 33.0-33.9, adult
CPT/HCPCS: 36415; 50590; 52281; 74018; 80048; 84550; 85025; 93005; C1758; J0131; J0461; J1100; J1170; J1580; J2001; J2175; J2250; J2405; J2704; J3010; Q9967; U0002

== ENCOUNTER → 2022-05-27 | Day surgery (SDC) | payer BC ==
[2022-05-25 09:07] LABS: BASOPHILS # (AUTO) 0.1 (0.0-0.1); EOSINOPHILS # (AUTO) 0.4 (0.0-0.4); EOSINOPHILS % 4.3 % (0.0-6.0); HEMATOCRIT 53.5 % (38.2-49.6); HEMOGLOBIN 17.3 g/dL (14.0-18.0); MEAN CORPUSCULAR HEMOGLOBIN 29.7 pg (28-32); MEAN CORPUSCULAR HGB CONC 32.3 g/dL (31-35); MEAN CORPUSCULAR VOLUME 91.8 fL (81-99); MONOCYTES # (AUTO) 0.9 (0.2-0.8); MONOCYTES % 9.8 % (4.4-11.3); NEUTROPHILS # (AUTO) 4.7 (2.1-6.9); NEUTROPHILS % 51.6 % (38.7-80.0); PLATELET COUNT 263 x10e3/uL (140-360); RED BLOOD COUNT 5.83 x10e6/uL (4.3-5.7); RED CELL DISTRIBUTION WIDTH 13.7 % (11.7-14.4)
[2022-05-25 09:27] LABS: ANION GAP 12.3 mmol/L (8-16); CALCIUM 8.8 mg/dL (8.4-10.2); CREATININE, SERUM 1.65 mg/dL (0.72-1.25); POTASSIUM 4.3 mmol/L (3.5-5.1)
[~2022-05-27] MED LIST changes: -ACETAMINOPHEN 1000 MG/100 ML 100 ML IV ONE; -ACETAMINOPHEN/CODEINE 300MG - 30MG TAB ONE; -ATROPINE SULFATE 1 MG/ML VIAL ONE; -B&O 60MG R/S 60 MG SUPP PR ONE; -EPHEDRINE SULFATE INJ 50 MG/ML VIAL ONE; -GENTAMICIN 80MG/NS 100 ML 200 ML IV ONE; -GLYCOPYRROLATE INJ 0.2 MG/ML VIAL ONE; +HYDROCODONE/APAP 5MG-325MG TAB ONE; -HYDROMORPHONE 1MG/1ML INJ ONE; -IOPAMIDOL 610MG/1ML 300 MG/ML VIAL IV ONE; +LEVOFLOXACIN 500MG/D5W 100ML 100 ML IV ONE; -MEPERIDINE HCL INJ 25 MG/ML VIAL ONE
[2022-05-27 09:35] VITALS: BP 123/84
== END | disposition home or self-care (01) ==
LOC: OR 07:03
PROVIDERS: ATTEND Urology
DX: N20.0 Calculus of kidney (principal); G47.33 Obstructive sleep apnea (adult) (pediatric); Z88.0 Allergy status to penicillin; Z01.812 Encounter for preprocedural laboratory examination; Z01.818 Encounter for other preprocedural examination; Z20.822 Contact with and (suspected) exposure to COVID-19
CPT/HCPCS: 0223U; 36415; 50590; 74018; 80048; 84550; 85025; J1100; J1956; J2001; J2250; J2405; J3010

== ENCOUNTER → 2023-03-09 | Day surgery (SDC) | payer BC ==
[2023-03-07 16:29] LABS: ANION GAP 14.2 mmol/L (8-16); CALCIUM 9.3 mg/dL (8.4-10.2); CREATININE, SERUM 1.52 mg/dL (0.72-1.25); POTASSIUM 4.2 mmol/L (3.5-5.1)
[~2023-03-09] MED LIST changes: +BUPIVACAINE HCL 0.5% INJ 30 ML VIAL INJ ONE; +CLINDAMYCIN PHOS 900MG/ 50ML 50 ML IV ONE; -HYDROCODONE/APAP 5MG-325MG TAB ONE; +LACTATED RINGER'S 1,000 ML ONE; -LEVOFLOXACIN 500MG/D5W 100ML 100 ML IV ONE
[2023-03-09] MEDS: FENTANYL CITRATE/PF 100MCG/2 ML INJ ONE ×2 (13:13→13:55)
[2023-03-09 13:45] VITALS: BP 111/79
== END | disposition home or self-care (01) ==
LOC: OR 09:37
PROVIDERS: ATTEND Podiatrist Foot & Ankle Surgery
DX: M20.21 Hallux rigidus, right foot (principal); G47.33 Obstructive sleep apnea (adult) (pediatric); Z88.0 Allergy status to penicillin; Z01.810 Encounter for preprocedural cardiovascular examination; Z01.812 Encounter for preprocedural laboratory examination; Z01.818 Encounter for other preprocedural examination
CPT/HCPCS: 28289; 36415; 71046; 80048; 88304; 88311; 93005; J0690; J1100; J2001; J2250; J2405; J2704; J3010; J7121

== ENCOUNTER → 2025-07-08 | Outpatient (REF) | payer BC ==
[~2025-07-08] MED LIST changes: -BUPIVACAINE HCL 0.5% INJ 30 ML VIAL INJ ONE; -CLINDAMYCIN PHOS 900MG/ 50ML 50 ML IV ONE; -DEXAMETHASONE SOD PHOS INJ 4 MG/ML SDV ONE; -FENTANYL CITRATE/PF 100MCG/2 ML INJ ONE; -LACTATED RINGER'S 1,000 ML ONE; -LIDOCAINE HCL 2% LOCAL INJ 5 ML SDV VIAL INJ ONE; -MIDAZOLAM HCL 2 MG/2 ML VIAL ONE; -ONDANSETRON HCL INJ 2MG/ML 2ML 2 MG/ML VIAL ONE; -POVIDONE IODINE 0.05% 0.05 % ML PO ONE; -PROPOFOL IV EMULSION 10 MG/ML 20 ML VIAL ONE; -SEVOFLURANE INHAL SOLN 250 ML PEN BTL ONE
== END ==
LOC: RAD 14:15
PROVIDERS: ATTEND Psychiatry & Neurology Neurology
DX: M54.2 Cervicalgia (principal)
CPT/HCPCS: 72052